=== PATIENT | female | born 1970 | race Caucasian/White ===

== ENCOUNTER 2024-05-01 17:00 | Emergency (ER) | payer OTHER ==
[~2024-05-01] VITALS: Ht 154.9 cm; Wt 56.7 kg
--- NOTE | 2024-05-01 17:10 | NUR ---
BIBA [id number] "[place] lightheaded/dizzy/nauseous/vomiting. Moving"
[2024-05-01 17:55] VITALS: TEMP 97.6
[2024-05-01] MEDS ORDERED: METOCLOPRAMIDE HCL 10 MG/2 ML VIAL ONE (18:07)
[2024-05-01] MEDS: METOCLOPRAMIDE HCL 10 MG/2 ML VIAL IV ONE (18:15)
[2024-05-01] MEDS: IV NS 0.9% 1,000 ML BAG IV ONE (18:15)
[2024-05-01 18:20] LABS: BASOPHILS # (AUTO) 0.1 K/uL (0.0-0.2); BASOPHILS % (AUTO) 0.8 % (0.0-2.0); EOSINOPHILS % (AUTO) 0.3 % (0.0-6.0); HEMATOCRIT 43 % (33-45); HEMOGLOBIN 14.4 g/dL (11.5-14.8); LYMPHOCYTES # (AUTO) 1.4 K/uL (0.8-4.8); MEAN CORPUSCULAR HEMOGLOBIN 30 PG (26.0-33.0); MEAN CORPUSCULAR HGB CONC 34 g/dl (31.0-36.0); MEAN CORPUSCULAR VOLUME 90 fL (82-100); MONOCYTES # (AUTO) 0.4 K/uL (0.1-1.30); MONOCYTES % (AUTO) 6.5 % (2.0-12.0); NEUTROPHILS # (AUTO) 4.9 K/uL (1.8-8.9); NEUTROPHILS % (AUTO) 71.4 % (43.0-81.0); PLATELET COUNT (AUTO) 167 K/uL (150-450); RED BLOOD CELL COUNT(AUTO) 4.74 MIL/uL (4.0-5.2); RED CELL DISTRIBUTION WIDTH 12.7 % (11.5-15.0); WHITE BLOOD COUNT (AUTO) 6.9 K/uL (4.3-11.0)
[2024-05-01 18:27] LABS: CALCIUM, SERUM 9.6 mg/dL (8.5-10.1); CARBON DIOXIDE 27 mmol/L (21-32); CHLORIDE 103 mmol/L (98-107); CREATININE 0.9 mg/dL (0.6-1.3); GLUCOSE 127 mg/dL (74-106); POTASSIUM 3.5 mmol/L (3.5-5.1); SODIUM SERUM 138 mmol/L (136-145); UREA NITROGEN, BLOOD 17 mg/dL (7-18)
[2024-05-01 18:32] LABS: ALANINE AMINOTRANSFERASE 27 U/L (12-78); ALBUMIN 4.1 g/dL (3.4-5.0); ALKALINE PHOSPHATASE 82 U/L (46-116); ASPARTATE AMINOTRANSFERASE 20 U/L (15-37); BILIRUBIN,DIRECT 0.1 mg/dL (0.0-0.2); BILIRUBIN,TOTAL 0.5 mg/dL (0.2-1.0); PARTIAL THROMBOPLASTIN TIME 22.7 SEC (24.3-34.3); PROTHROMBIN TIME 10.3 SECS (9.2-11.1); TOTAL PROTEIN, SERUM 7.3 g/dL (6.4-8.2)
[2024-05-01 18:54] LABS: MAGNESIUM 2.4 mg/dL (1.8-2.4)
[2024-05-01 19:08] LABS: THYROID STIMULATING HORMONE 1.53 uIU/mL (0.358-3.74)
--- NOTE | 2024-05-01 19:26 | NUR ---
PT DENIES DIZZINESS AT AT THIS TIME. AMB WITH STEADY GAIT
[2024-05-01] MEDS ORDERED: ONDA4TAB11 PO (20:33)
--- NOTE | 2024-05-01 20:43 | NUR ---
Patient discharged to home in stable condition. Written and verbal after care instructions given. Patient verbalizes understanding of instruction. IV removed. Catheter intact and site benign. Pressure and 4x4 applied to site. No bleeding noted.
[2024-05-02 00:58] VITALS: BP 116/79; O2SAT 99
== END 2024-05-01 21:00 | disposition home or self-care (01) ==
LOC: ER 18:29
DX: R55 Syncope and collapse (principal); R11.2 Nausea with vomiting, unspecified; Z79.899 Other long term (current) drug therapy; Z88.0 Allergy status to penicillin
CPT/HCPCS: 99285; 96374; 70450; 96361; 71045; 93005; 85025; 80048; 82550; 80076; 83735; 36415; 84439; 84443; 84484; 85730; J2765; J7030 ×2; A4223